=== PATIENT | male | born 2000 | race Caucasian/White ===

== ENCOUNTER 2022-07-31 14:10 | Outpatient (CLI) | payer BC, SELFPAY ==
[2022-07-31 14:28] LABS: Hematocrit 44.9 % (37.0-53.0); Mean Corpuscular HGB Conc 33 gm/dL (32-36); Mean Corpuscular Hemoglobin 30 pg (26-34); Mean Corpuscular Volume 90 fL (80-100); Platelet Count* 338 K/uL (140-440); White Blood Count* 12.55 K/uL (4.50-11.00)
[2022-07-31 14:33] LABS: Slide Review Reflex No
[2022-07-31 14:57] LABS: Erythrocyte SedimentationRate* 2 mm/hr (2-15)
[2022-07-31 14:58] LABS: Basophils Absolute Auto 0.04 K/uL (0.00-0.30); Basophils Percent Auto 0.3 % (0.0-3.0); Eosinophils Absolute Auto 0.12 K/uL (0.00-0.50); Lymphocytes Absolute Auto 2.74 K/uL (0.90-2.90); Lymphocytes Percent Auto 22.3 % (20-44); Monocytes Absolute Auto 0.73 K/UL (0.00-0.90); Monocytes Percent Auto 5.9 % (0.0-11.0); Neutrophils Absolute Auto 8.67 K/uL (1.7-7.0); Neutrophils Percent Auto 70.5 % (42.0-72.0)
[2022-07-31 22:04] LABS: Uric Acid* 5.5 mg/dL (2.2-8.4)
[2022-07-31 22:07] LABS: C Reactive Protein* < 0.5 mg/dL (0.5-1.0)
== END 2022-07-31 14:11 | disposition home or self-care (01) ==
PROVIDERS: PCP Physician Assistant Medical; Visit Provider Physician Assistant Medical
DX: M25.561 Pain in right knee (principal); M25.562 Pain in left knee
CPT/HCPCS: 84550; 85025; 85027; 85651; 86140